=== PATIENT | male | born 1950 | race Caucasian/White ===

== ENCOUNTER 2017-01-18 15:25 | Emergency (ER) | payer OTHER ==
[~2017-01-18] VITALS: Ht 180.3 cm; Wt 82.0 kg
[2017-01-18] MEDS ORDERED: EPINEPHrine HCL (1:10,000) 1 MG/10 ML SYRINGE IV ONE (15:26)
[2017-01-18] MEDS ORDERED: CALCIUM CHLORIDE 10% SOLN 1 GRAM/10 ML SYR IV ONE (15:26)
[2017-01-18] MEDS ORDERED: SODIUM BICARBONATE 8.4% INJ 50 MEQ/50 ML SYR IV ONE (15:26)
--- NOTE | 2017-01-18 15:52 | PD ---
HPI Chief Complaint: cardiac arrest Time Seen by Provider: 15:40 Travel History International Travel<30 days: No (unknown) Contact w/Intl Traveler<30days: No (unknown) History of Present Illness HPI 66yo M with PMH of mood disorder substance induced, h/o alcohol intoxication presents to the ED via [facility] in cardiac arrest. Pt had a witnessed arrest by family and CPR was started by family. When [facility] got there, pt was in vfib and defibrillated 5 times, given epi x6, amiodarone 300mg with no ROSC. Pt was then in asystole when he arrived to the ED. Pt had already had 40 minutes of CPR prior to ED arrival. Blood glucose was 90. Pt was intubated by [facility] in the field and had bilateral breath sounds. However, during CPR in the ED, pt started having bright red blood from ET tube. Pupils were fixed and dilated on arrival. Pt remained in asystole and was given epi x4, calcium chloride and sodium bicarb. Bedside ultrasound confirmed no cardiac activity. Time of was 3:37pm. PFSH Past Medical History High Cholesterol: Yes Diabetes: No Immunizations Current: Yes Social History Alcohol Use: Yes Tobacco Use: Yes (/2 PPD) Substance Use: Yes Allergies-Medications (Allergen,Severity, Reaction): Coded Allergies: No Known Allergies (Verified , 03/26/14) Per pt. Reported Meds & Prescriptions Reported Meds & Active Scripts Active No Active Prescriptions or Reported Medications Review of Systems ROS Limitations: Unresponsive Physical Exam Narrative GENERAL: 66yo M unresponsive. SKIN: Focused skin assessment warm/dry. HEAD: Atraumatic. Normocephalic. EYES: Pupils fixed and dilated bilaterally. NECK: Trachea midline. No JVD. CARDIOVASCULAR: Asystole. RESPIRATORY: Bilateral breath sounds s/p intubation. Bright red blood from ET tube during CPR. GASTROINTESTINAL: Abdomen soft, nondistended. MUSCULOSKELETAL: No obvious deformities. No clubbing. No cyanosis. No edema. NEUROLOGICAL: Unresponsive. [facility] Medical Decision Making Medical Screen Exam Complete: Yes Emergency Medical Condition: Yes Differential Diagnosis Cardiac arrest secondary to PE vs. PR vs. ICH vs. Aortic dissection Narrative Course 66yo M brought in by [facility] in cardiac arrest in asystole. Pt was unresponsive for 40 min prior to arrival. Please see HPI for details. Will have charge nurse call family and medical billing instructor. Will see if this is a medical billing instructor case. I discussed case with pt's son and . The son said that he was with the patient and asking him if he was ok, he said no and then vomited and went stiff and unresponsive so he started CPR. States pt may have been drinking because vomit smelled of alcohol. No other history. garment alteration examiner was contacted and accepted the case. I answered all questions from the family. Diagnosis Primary Impression: Cardiac arrest Scripts No Active Prescriptions or Reported Meds Disposition: 20 Condition: Emily Swift DO Jan 18, 2017 15:52
== END 2017-01-18 18:54 | disposition expired ==
LOC: NEPC 15:25
DX: I46.9 Cardiac arrest, cause unspecified (principal); E78.00 Pure hypercholesterolemia, unspecified; F17.200 Nicotine dependence, unspecified, uncomplicated
CPT/HCPCS: 92950; 99285; J0171